=== PATIENT | female | born 1970 | race Caucasian/White ===

== ENCOUNTER 2023-08-15 01:10 | Emergency (ER) | payer BC ==
[2023-08-15 01:17] VITALS: TEMP 97.3; BMI 23.9
[2023-08-15 03:30] VITALS: BP 119/76; PULSE 64; RESP 18
== END 2023-08-15 04:52 | disposition home or self-care (01) ==
LOC: FER 01:10
DX: R07.89 Other chest pain (principal)
CPT/HCPCS: 36415; 82550; 84484; 93005; 99284-25